=== PATIENT | female | born 1980 | race African-American/Black ===

== ENCOUNTER 2016-09-02 17:30 | Emergency (ER) | payer MEDICAID ==
[2015-11-12 04:53] VITALS: BMI 23.4
[~2016-09-02 17:30] MED LIST: ABILIFY15 MG PO; AMBIEN10 MG PO; CIPRO500 MG PO; CYPROHEPTADINE H4 MG PO; DILAUDID4 MG PO; FERROUS SULFAT325 MG PO; HYDROCHLOROTHIA25 MG PO; NEURONTIN 300300 MG PO; NORCO 7.5/325 T1 TA1 PO; PHENERGAN25 M1 PO; ROBAXIN-750750 MG PO; TRANDATE200 MG PO; XANAX1 MG PO
== END 2016-09-02 18:47 | disposition home or self-care (01) ==
LOC: D.ER 17:30
DX: S00.83XA Contusion of other part of head, initial encounter (principal); Y04.2XXA Assault by strike against or bumped into by another person, initial encounter; Y93.89 Activity, other specified; Y92.019 Unspecified place in single-family (private) house as the place of occurrence of the external cause; I10 Essential (primary) hypertension; F17.200 Nicotine dependence, unspecified, uncomplicated

== ENCOUNTER 2017-05-30 04:00 | Emergency (ER) | payer MEDICAID ==
[2015-11-12 04:53] VITALS: BMI 23.4
== END 2017-05-30 05:43 | disposition home or self-care (01) ==
LOC: D.ER 04:00
DX: S01.01XA Laceration without foreign body of scalp, initial encounter (principal); Y04.2XXA Assault by strike against or bumped into by another person, initial encounter; Y93.89 Activity, other specified; Y92.89 Other specified places as the place of occurrence of the external cause; S00.03XA Contusion of scalp, initial encounter; I10 Essential (primary) hypertension

== ENCOUNTER → 2017-06-15 10:17 | Outpatient (CLI) | payer MEDICAID ==
[2015-11-12 04:53] VITALS: BMI 23.4
== END | disposition home or self-care (01) ==
LOC: D.MRI 10:17
DX: M25.512 Pain in left shoulder (principal)

== ENCOUNTER → 2017-10-05 10:59 | Outpatient (CLI) | payer MEDICAID ==
[2015-11-12 04:53] VITALS: BMI 23.4
== END | disposition home or self-care (01) ==
LOC: D.MRI 10:59
DX: M54.2 Cervicalgia (principal)

== ENCOUNTER 2018-07-19 15:50 | Emergency (ER) | payer MEDICAID ==
[~2018-07-19] VITALS: Ht 170.2 cm; Wt 70.5 kg
[2018-07-19 15:59] VITALS: BP 150/109; Ht 170.2 cm; Wt 70.5 kg
== END 2018-07-19 16:55 | disposition left against medical advice (07) ==
LOC: D.ER 15:50
DX: R68.84 Jaw pain (principal)

== ENCOUNTER → 2019-08-26 12:51 | Outpatient (CLI) | payer MEDICAID ==
[2018-07-19 15:59] VITALS: BMI 24.3
== END | disposition home or self-care (01) ==
LOC: D.MRI 12:51
PROVIDERS: ATTEND Family Medicine
DX: M54.2 Cervicalgia (principal); M54.5 Low back pain

== ENCOUNTER 2019-11-17 23:09 | Emergency (ER) | payer OTHER ==
[~2019-11-17] VITALS: Ht 170.2 cm; Wt 70.5 kg
[2019-11-17 23:14] VITALS: Ht 170.2 cm; Wt 70.5 kg
[2019-11-17] MEDS ORDERED: HYDROCODON-ACE1 EA10 PO (23:21)
[2019-11-17] MEDS ORDERED: NORVASC10 MG PO (23:22)
[2019-11-17] MEDS ORDERED: NORVASC5 MG PO (23:22)
[2019-11-18] MEDS ORDERED: NAPROSYN500 MG PO (00:29)
[2019-11-18 01:02] VITALS: BP 172/100
== END 2019-11-18 01:02 | disposition home or self-care (01) ==
LOC: D.ER 23:09
DX: S83.91XA Sprain of unspecified site of right knee, initial encounter (principal); S89.91XA Unspecified injury of right lower leg, initial encounter; I10 Essential (primary) hypertension; Z72.0 Tobacco use; X58.XXXA Exposure to other specified factors, initial encounter; Y93.9 Activity, unspecified; Y92.9 Unspecified place or not applicable

== ENCOUNTER → 2019-12-20 08:51 | Outpatient (CLI) | payer OTHER ==
[2019-11-17 23:14] VITALS: BMI 24.3
[~2019-12-20 08:51] MED LIST changes: +HYDROCODON-ACE1 EA10 PO; +NAPROSYN500 MG PO; +NORVASC10 MG PO; +NORVASC5 MG PO
== END | disposition home or self-care (01) ==
LOC: D.MRI 08:51
PROVIDERS: ATTEND Clinical Nurse Specialist Family Health
DX: M25.561 Pain in right knee (principal)